=== PATIENT | male | born 1945 | race Caucasian/White ===

== ENCOUNTER → 2017-02-28 | Outpatient (CLI) | payer MEDICARE, MEDICAID ==
[2014-08-17 15:44] VITALS: BP 117/63
[~2017-02-28] MED LIST: ACEROLA C500 MG PO; ALBUTEROL1.25 MG/3 IH; AMIODARONE HCL200 MG PO; AMIODARONE200 MG PO; ASPIR LOW81 MG PO; ATORVASTATIN CA20 MG PO; CETAPHIL ANTIBA1 SOA TP; CETAPHIL MOISTU1 CRE TOP; CRESTOR 10MG10 MG PO; FEROSUL325 M1 PO; HALDOL DEC50 MG/1 ML IM; HALDOL5 MG/M1 IM; LEVO-T50 MCG PO; LIPITOR20 MG PO; MYCELEX10 MG/TAB MM; OMEPRAZOLE DR20 MG PO; PRADAXA75 MG PO; RT ALBUTER2.5 MG/0.5 IH; TRIAMCINOLONE0.025% TOP; VESICARE5 MG PO; ZESTRIL2.5 MG PO; [UNRECOGNIZED DRUG - OTHER] PO
== END ==
LOC: LAB 12:11
DX: E11.9 Type 2 diabetes mellitus without complications (principal); Z12.5 Encounter for screening for malignant neoplasm of prostate; I48.2 Chronic atrial fibrillation; N52.9 Male erectile dysfunction, unspecified; E61.1 Iron deficiency; R20.2 Paresthesia of skin

== ENCOUNTER 2017-05-13 10:01 | Emergency (ER) | payer MEDICARE, MEDICAID ==
[~2017-05-13] VITALS: Ht 152.4 cm; Wt 72.5 kg
[~2017-05-13 10:01] MED LIST changes: -ACEROLA C500 MG PO; -FEROSUL325 M1 PO; -LEVO-T50 MCG PO
[2017-05-13] MEDS ORDERED: LEVO-T50 MCG PO (10:56)
[2017-05-13] MEDS ORDERED: ACEROLA C500 MG PO (10:56)
[2017-05-13] MEDS ORDERED: FEROSUL325 M1 PO (10:56)
[2017-05-13 16:22] VITALS: BP 117/56
== END 2017-05-13 16:18 | disposition short-term general hospital (02) ==
LOC: ED 10:01
DX: I95.9 Hypotension, unspecified (principal); E87.2 Acidosis; L89.224 Pressure ulcer of left hip, stage 4; L89.214 Pressure ulcer of right hip, stage 4; L89.154 Pressure ulcer of sacral region, stage 4; L89.324 Pressure ulcer of left buttock, stage 4; L89.314 Pressure ulcer of right buttock, stage 4; D64.9 Anemia, unspecified; Z74.01 Bed confinement status; I48.91 Unspecified atrial fibrillation; F20.0 Paranoid schizophrenia; E11.9 Type 2 diabetes mellitus without complications; Z95.0 Presence of cardiac pacemaker; J45.909 Unspecified asthma, uncomplicated; R53.81 Other malaise
CPT/HCPCS: J0696; J7030; Q9967